=== PATIENT | female | born 1955 | race Hispanic/Latino ===

== ENCOUNTER 2019-02-10 14:02 | Outpatient (CLI) | payer MEDICARE, OTHER ==
--- NOTE | 2019-02-10 18:35 | ULT ---
SOFT TISSUE ULTRASOUND OF NECK: Date: 02/10/19 HISTORY: Palpable mass just beneath the jaw line at midline. TECHNIQUE: Multiplanar Ward scale and color Doppler images were obtained in a targeted ultrasound of the area of palpable abnormality in the neck. FINDINGS: There is a complex solid/cystic mass at the area of palpable abnormality measuring 1.7 x 1.0 x 1.7 cm in size. This may be associated with the strap musculature of the neck. IMPRESSION: Midline mixed solid/cystic mass. This is nonspecific. This could represent a thyroglossal duct cyst o r a sublingual thyroid gland. A CT of the neck with contrast is recommended for better characterizati on. POS: [facility]
== END 2019-02-10 14:03 | disposition home or self-care (01) ==
LOC: BICULT 14:02
PROVIDERS: ATTEND Family Medicine
DX: R22.1 Localized swelling, mass and lump, neck (principal)
CPT/HCPCS: 76536

== ENCOUNTER 2019-02-20 07:30 | Day surgery (SDC) | payer MEDICARE, OTHER ==
[2019-02-19 09:52] VITALS: BMI 29.9
[2019-02-20 08:16] LABS: Hemoglobin 13.3 g/dL (12.0-16.0); Platelet Count 160 thou/uL (130-400)
[2019-02-20 08:29] LABS: Anion Gap 14 mmol/L (10-20); BUN (Urea Nitrogen) 19 mg/dL (9.8-20.1); Calc. Creatinine Clearance 82 mL/min (70-130); Carbon Dioxide 25 mmol/L (23-31); Chloride 101 mmol/L (98-107); Estimated GFR-MDRD 77; Glucose 231 mg/dL (80-115); Potassium 4.2 mmol/L (3.5-5.1); Sodium 136 mmol/L (136-145)
[2019-02-20] MEDS ORDERED: Lidocaine 1% w/Epinephrine 1:100K 20 ML VIAL ONE (09:04)
[2019-02-20] MEDS ORDERED: Bacitracin Zinc Ointment 30 gm TUBE ONE (09:04)
[2019-02-20] MEDS ORDERED: Fentanyl 100 MCG/2 ML VIAL ONE ×3 (09:09→11:52)
[2019-02-20] MEDS ORDERED: Midazolam HCl 2 mg/2 ml Vial ONE ×2 (09:09→13:43)
[2019-02-20] MEDS ORDERED: Promethazine HCl 25 MG/ML VIAL ONE (11:44)
[2019-02-20] MEDS ORDERED: PHENYLEPHRINE-NS 100 MCG/ML 10 ML SYRINGE ONE (11:49)
[2019-02-20] MEDS ORDERED: Lidocaine 1% PF 5 ML VIAL ONE (11:49)
[2019-02-20] MEDS ORDERED: PROPOFOL 200 MG/20 ML VIAL ONE (11:49)
[2019-02-20] MEDS ORDERED: Dexamethasone 20 MG/5 ML VIAL ONE (11:49)
[2019-02-20] MEDS ORDERED: Ondansetron PF 4 MG/2 ML Vial ONE ×2 (11:49→12:34)
[2019-02-20] MEDS ORDERED: Dexamethasone 4 mg/ml Vial ONE (13:51)
--- NOTE | 2019-02-21 13:16 | OP ---
DATE OF PROCEDURE: 02/20/2019 PREOPERATIVE DIAGNOSIS: Thyroglossal duct cyst. POSTOPERATIVE DIAGNOSIS: Thyroglossal duct cyst. PROCEDURE PERFORMED: Direct laryngoscopy. Excision of thyroglossal duct cyst, it is called the Ashleigh procedure. PROCEDURE IN DETAIL: After consent was obtained, the patient identified and brought to the operating room, placed on the operating table in supine position. General endotracheal anesthesia was obtained. The patient underwent systematic oropharyngeal examination, hypopharyngeal examination with the laryngoscope. No abnormalities were identified and base of tongue appeared normal. We then prepped and draped the patient, positioned her for surgery. A natural skin crease below the chin was identified and marked for incision. 1% lidocaine 100,000 epinephrine was infiltrated into the area of intended incision. An incision was made through the skin, subcutaneous tissues, and down to where the cyst was encountered. We then dissected the cyst from the surrounding musculature, laryngeal musculature and strap muscles. We dissected the cyst tract to the midportion of the hyoid bone. The bone was delineated and midsection was removed. We then identified the cyst again, tracked on the contralateral side of the hyoid, midportion the hyoid bone and dissected that to the insertion to the tongue base. This was then suture ligated twice with silk suture. The pharyngeal muscles were reapproximated with absorbable suture. The skin was ultimately closed. The platysma was closed with absorbable Monocryl and the skin closed with 6-0 Prolene. Sterile dressing was applied. The patient was awakened, extubated and taken to recovery room in stable condition prior to discharge home. Job ID: [id number]
--- NOTE | 2019-02-25 10:16 | EKG ---
Test Reason : PREOP Blood Pressure : / mmHG Vent. Rate : 068 BPM Atrial Rate : 068 BPM P-R Int : 146 ms QRS Dur : 146 ms QT Int : 444 ms P-R-T Axes : 039 -71 -29 degrees QTc Int : 472 ms Normal sinus rhythm Right bundle branch block Left anterior fascicular block Bifascicular block Minimal voltage criteria for LVH, may be normal variant Abnormal ECG Confirmed by PATY MARTINI, JACQUELIN ([id number]) on 02/25/2019 10:16:44 AM Referred By: DMITRY Confirmed By:JACQUELIN NEWMAN MD
== END 2019-02-20 15:15 | disposition home or self-care (01) ==
LOC: SDC 07:30
PROVIDERS: ATTEND Specialist
PROC: 0WB60ZX Excision of Neck, Open Approach, Diagnostic (ICD-10-PCS; principal; 2019-02-20)
DX: Q89.2 Congenital malformations of other endocrine glands (principal); I10 Essential (primary) hypertension; E78.5 Hyperlipidemia, unspecified; E11.9 Type 2 diabetes mellitus without complications; E78.00 Pure hypercholesterolemia, unspecified; K21.9 Gastro-esophageal reflux disease without esophagitis; Z87.891 Personal history of nicotine dependence; Z79.84 Long term (current) use of oral hypoglycemic drugs; Z79.899 Other long term (current) drug therapy
CPT/HCPCS: 36415; 80048; 85014; 85018; 85049; 88305; 88311; 93005; 93010; J1100; J2001; J2250; J2405; J2550; J2704; J3010

== ENCOUNTER 2019-06-12 00:41 | Inpatient (IN) | payer MEDICARE, OTHER ==
[2019-06-12 01:11] LABS: #Eosinphils 0.3 thou/uL (0.0-0.7); #Lymphocytes 2.2 thou/uL (1.20-3.40); #Monocytes 0.5 thou/uL (0.11-0.59); #Neutrophils 4.9 thou/uL (1.40-6.50); %Basophils 0.3 % (0.0-1.0); %Eosinophils 3.2 % (0.0-10.0); %Lymphocytes 27.9 % (21.0-51.0); %Monocytes 6.4 % (0.0-10.0); %Neutrophils 62.3 % (42.0-75.0); Mean Corpuscular HGB CONC 35.3 g/dL (32.0-36.0); Mean Corpuscular Hemoglobin 31.6 pg (27.0-31.0); Mean Corpuscular Volume 89.5 fL (78.0-98.0); Mean Platelet Volume 9.3 fL (7.4-10.4); Platelet Count 203 thou/uL (130-400); RBC Distribution Width 11.6 % (11.5-14.5); Red Blood Cell (RBC) Count 4.75 mill/uL (4.20-5.40); White Blood Cell (WBC) Count 7.8 thou/uL (4.8-10.8)
[2019-06-12 01:33] LABS: ALT (SGPT) 42 U/L (8-55); AST (SGOT) 25 U/L (5-34); Albumin 4.7 g/dL (3.4-4.8); Alkaline Phosphatase 63 U/L (40-110); Anion Gap 17 mmol/L (10-20); BUN (Urea Nitrogen) 18 mg/dL (9.8-20.1); Bilirubin, Total 0.4 mg/dL (0.2-1.2); Calc. Creatinine Clearance 0 mL/min (70-130); Calcium 10.1 mg/dL (7.8-10.44); Carbon Dioxide 23 mmol/L (23-31); Chloride 99 mmol/L (98-107); Estimated GFR-MDRD 71; Globulin 2.6 g/dL (2.4-3.5); Glucose 324 mg/dL (80-115); Potassium 4.1 mmol/L (3.5-5.1); Protein, Total 7.3 g/dL (6.0-8.3); Sodium 135 mmol/L (136-145)
[2019-06-12] MEDS ORDERED: Calcium Chloride 1 GM/10 ML Abboject SYRINGE ONE (01:43)
[2019-06-12] MEDS ORDERED: Fentanyl 100 MCG/2 ML VIAL ONE (02:13)
[2019-06-12 03:26] VITALS: BMI 27.7
--- NOTE | 2019-06-12 03:47 | CON ---
DATE OF CONSULTATION: TIME: Critical Care time 1 hour. HISTORY OF PRESENT ILLNESS: The patient is a 64-year-old woman who presents after losing consciousness. The patient has no previous cardiac history. The patient was in her usual state of health when she was at [facility] and suddenly lost consciousness. This happened on 2 occasions. She was brought to the emergency room for further evaluation. The patient denies having any history of chest pain or dyspnea. She has never previously lost consciousness. PAST MEDICAL HISTORY: 1. Diabetes mellitus. 2. Hypertension. 3. Hypercholesterolemia. PAST SURGICAL HISTORY: Foot surgery, cholecystectomy,and tubal ligation. MEDICATIONS: 1. Lipitor 10 daily. 2. HCTZ 12.5 daily. 3. Protonix 40 b.i.d. 4. Verapamil 240 daily. 5. Glyburide 2.5 daily. 6. Metformin 2000 daily. ALLERGIES: NO KNOWN DRUG ALLERGIES. PHYSICAL EXAMINATION: GENERAL: Obese woman, in mild distress with a blood pressure of 170/50, heart rate is 30 bpm. NECK: No jugular venous distention. LUNGS: Clear to auscultation. HEART: Regular rate and rhythm. Normal S1 and S2 with a 2/6 systolic murmur. ABDOMEN: Distended. EXTREMITIES: Showed no edema. VASCULAR: Radial pulses 2+. LABORATORY DATA: Sodium 135, potassium 4.1, chloride 99, bicarbonate 23, BUN 18 , creatinine 0.81, glucose 324. Troponin less than 0.01. BNP less than 10. IMAGING: EKG revealed third-degree heart block with a slow ventricular escape rhythm. IMPRESSION: 1. Third-degree heart block. 2. Diabetes mellitus. 3. Hypertension. 4. Dyslipidemia. This patient developed third-degree heart block. She had lost consciousness. The patient is maintaining her blood pressure. The patient will need to undergo placement of an electronic pacemaker. She will be observed in the CCU. Transcutaneous pacemaker shows appropriate capture. We will follow this patient with you through her hospitalization. Job ID: [id number] [facility]
[2019-06-12] MEDS ORDERED: Acetaminophen 325 MG TAB PO PRN (04:16)
[2019-06-12] MEDS ORDERED: HumaLOG 300 UNITS/3 ML VIAL SC PRN (04:19)
[2019-06-12] MEDS ORDERED: Dextrose 50% Abboject 50 ML SYRINGE SLOW IVP PRN ×2 (04:19→14:05)
[2019-06-12] MEDS ORDERED: Dextrose 5% in Water 1,000 ML IV PRN ×2 (04:19→14:05)
[2019-06-12] MEDS ORDERED: Lidocaine 1% (PF) 30 ML VIAL ONE ×2 (04:24→08:53)
[2019-06-12] MEDS ORDERED: Ondansetron ODT 4 MG TAB PO PRN (04:54)
[2019-06-12 05:25] LABS: Troponin I 0.022 ng/mL (< 0.028)
[2019-06-12] MEDS: Ondansetron PF 4 MG/2 ML Vial IVP PRN ×3 (05:49→17:00)
--- NOTE | 2019-06-12 05:58 | HP ---
CHIEF COMPLAINT: Syncope. HISTORY OF PRESENT ILLNESS: This patient is a 64-year-old female who presented to the emergency department. Patient was at [facility] today in her usual state of health and then she developed a syncopal episode. Her daughter was able to essentially catch her and keep her from falling to the ground significantly. Patient then had a second episode, presented to the emergency department. There , she was found to be in complete heart block. She had consultation with Dr. Stone. The plan was to give her some calcium in light of her calcium channel papo that she takes for hypertension. She had a cutaneous pacemaker placed and appeared to be capturing. However, the patient remained relatively asymptomatic and was maintaining a blood pressure in the emergency department. Therefore, the transcutaneous pacemaker is currently turned off and available in case the patient becomes significantly more symptomatic. Currently, the patient is feeling generally hot and slightly sweaty, but otherwise normal. She has no significant lightheadedness. No chest pain. She does report that she did have one episode of pain across her upper abdominal area about 4 o'clock this afternoon that spontaneously resolved. She denies any shortness of breath. REVIEW OF SYSTEMS: All other systems reviewed. All pertinent positives and negatives noted in history of present illness. PAST MEDICAL HISTORY: Notable for diabetes, hypertension, and hyperlipidemia. SURGERY: She has had cholecystectomy, foot surgery, hand surgery, thyroglossal duct cyst removal, and tubal ligation. FAMILY HISTORY: Mother had heart disease and diabetes. SOCIAL HISTORY: She is a nonsmoker, nondrinker, and nondrug user. She is full code and her daughter would be her surrogate decision maker should that become necessary. CURRENT MEDICATIONS: 1. Lipitor 10 mg daily. 2. Hydrochlorothiazide 12.5 mg daily. 3. Protonix 40 mg b.i.d. 4. Verapamil 240 mg daily. 5. Glyburide 2.5 mg daily. 6. Metformin 2000 mg daily. ALLERGIES: NONE. PHYSICAL EXAMINATION: VITAL SIGNS: Currently pulse is in the 20s. Blood pressure in the ER was actually running a bit high. I am unable to get a blood pressure on the monitor in the ICU presently. GENERAL APPEARANCE: Again, patient is fully awake, alert, pleasant, and cooperative, two of her daughters are at her bedside. She is very minimally diaphoretic. HEENT: PERRL. No acute lesions. NECK: Supple and symmetric without lymphadenopathy, JVD, or carotid bruits. HEART: Rhythm is extremely bradycardic. There are no murmurs. LUNGS: Clear to auscultation bilaterally. Good chest wall expansion and air exchange. ABDOMEN: Soft, nontender, and nondistended. Positive bowel sounds. No masses. No organomegaly. EXTREMITIES: No cyanosis, clubbing, or edema. LABORATORY DATA: White count 7.8, hemoglobin 15.0, and platelets 203. Sodium 135, potassium 4.1, chloride 99, CO2 is 23, BUN 18, creatinine 0.81, glucose 324, calcium 10.1, AST is 25, ALT 42, and alk phos 63. Troponin less than 0.01. BNP less than 10. Albumin 4.7. Chest x-ray appears to be normal. EKG confirms third-degree heart block with bradycardia. IMPRESSION AND PLAN: 1. Third-degree heart block. Patient has maintained blood pressure. She is fully awake and has normal cognition at the moment. Therefore, the transcutaneous pacemaker has been turned off for the moment and is available as a safety net should it be necessary. She received calcium in the ER in light of her calcium channel papo. Those medicines are being held and she has been made n.p.o. after midnight for anticipation of a pacemaker placement in the next few hours. We will be asking Anesthesia to help place an arterial line so that we can in fact confirm the blood pressures. 2. Diabetes mellitus. Because she is n.p.o., we will give her sliding scale and Accu-Cheks. 3. Hypertension. Again, her pressure was actually high even with this bradycardia, but holding her calcium channel blockers. 4. Hyperlipidemia. We will continue with the statin. Job ID: [id number] [facility]
[2019-06-12] MEDS: Morphine 2 MG/ML SYRINGE SLOW IVP PRN ×2 (06:06→11:23)
[2019-06-12 08:05] LABS: Troponin I 0.017 ng/mL (< 0.028)
[2019-06-12] MEDS ORDERED: Gentamicin 80 MG/2 ML VIAL ONE (08:07)
[2019-06-12] MEDS ORDERED: CEFAZOLIN 1 GM VIAL ONE (08:07)
--- NOTE | 2019-06-12 08:15 | RAD ---
SINGLE VIEW OF THE CHEST: COMPARISON: None. HISTORY: Syncope. FINDINGS: Single view of the chest shows a normal sized cardiomediastinal silhouette. There is no evidence of c onsolidation, mass, or pleural effusion. The bones are unremarkable. IMPRESSION: No evidence of acute cardiopulmonary disease. POS: [facility]
[2019-06-12] MEDS ORDERED: Midazolam HCl 2 mg/2 ml Vial ONE (08:53)
[2019-06-12] MEDS ORDERED: Iopamidol 370 76% 50 ML VIAL FS ONE (11:12)
--- NOTE | 2019-06-12 11:24 | CON ---
DATE OF CONSULTATION: 06/12/2019 HISTORY OF PRESENT ILLNESS: Lilly Herr, who yesterday was in [facility], had several episodes of syncope, brought to the ER, where she was found to be in complete heart block. This morning, she underwent a cardiac cath and a pacemaker insertion. She is now back in the ICU. She is feeling better. Remote history of tobacco abuse without any prior history of TB, pneumonia, or bronchial asthma. In fact, most days, she is extremely healthy, walks a fair distance without getting markedly short of breath. PAST MEDICAL HISTORY: 1. Diabetes. 2. Hypertension. 3. High cholesterol. 4. Reflux. Apparently, she has cough. PAST SURGICAL HISTORY: 1. foot surgery. 2. Gallbladder surgery. 3. Hysterectomy. 4. Thyroglossal cyst removed. HOME MEDICINES: 1. Metformin 1000 twice a day. 2. Glyburide 2.5 once a day. 3. Verapamil 240 once a day. 4. Protonix 40 twice a day. 5. Hydrochlorothiazide 12.5 a day. 6. Lipitor 10. REVIEW OF SYSTEMS: Otherwise, negative. PHYSICAL EXAMINATION: VITAL SIGNS: Pulse 70, blood pressure 140/80, respirations 18, sats are 98%. CHEST: No wheezing or crackles. CARDIAC: Normal S1 and S2. No gallops. ABDOMEN: No masses. LABORATORY DATA: White count 7000, H and H unremarkable. Glucose 280. IMPRESSION AND PLAN: 1. Complete heart block. 2. Hypertension. 3. Diabetes. 4. Former smoker. Pulmonary calderon, nothing additional to offer at this stage. She remained in the ICU until disposition as per Cardiology. Pulmonary will follow while in the ICU. Consultation note, 70 minutes, 50% direct patient care. Job ID: [id number]
--- NOTE | 2019-06-12 11:55 | RAD ---
Portable frontal chest radiograph: 06/12/2019 At 11:23 AM COMPARISON: 06/12/2019 at 1:11 AM HISTORY: Evaluate chest following pacemaker placement FINDINGS: New dual lead left-sided transvenous pacing device. Leads overlie the region of the right a trium and the right ventricle. No pneumothorax, pleural fluid, focal consolidation, or alveolar edema. IMPRESSION: New dual lead transvenous pacing device. No pneumothorax.
--- NOTE | 2019-06-12 14:07 | PDOC.HOSPP ---
- Subjective Encounter Date: 06/12/19 Encounter Time: 10:50 Subjective: s/p pacer placement, restart CCB and diabetic diet. family at bedside. - Objective Vital Signs & Weight: Vital Signs (12 hours) Temp Pulse Resp BP Pulse Ox 06/12/19 13:18 97.5 F L 71 12 120/58 L 97 06/12/19 11:00 97.6 F 06/12/19 07:41 98 06/12/19 07:00 98.0 F 06/12/19 02:44 97 Weight Weight 146 lb 13.246 oz Most Recent Monitor Data Heart Rate from ECG 78 NIBP 135/76 NIBP BP-Mean 95 Respiration from ECG 10 SpO2 93 I&O: 06/11/19 06/12/19 06/13/19 06:59 06:59 06:59 Intake Total 100 Output Total 100 795 Balance -100 -695 Result Diagrams: 06/12/19 01:01 06/12/19 00:59 Additional Labs: Accuchecks 06/12/19 06/12/19 06/12/19 12:48 07:12 04:54 POC Glucose 214 H 280 H 336 H Hospitalist ROS - Medication Medications: Active Medications Generic Name Dose Route Start Last Admin Trade Name Freq PRN Reason Stop Dose Admin Acetaminophen 650 mg 06/12/19 04:16 06/12/19 11:23 Tylenol PO 650 mg Q4H PRN Administration Headache/Fever/Mild Pain (1-3) Insulin Human Lispro 0 units 06/12/19 04:19 06/12/19 05:56 Humalog SC 5 unit .MILD SLIDING SCALE PRN Administration Mild Correctional Scale Morphine Sulfate 2 mg 06/12/19 05:44 06/12/19 11:23 Morphine SLOW IVP 2 mg Q4H PRN Administration Moderate to Severe Pain (6-10) Ondansetron HCl 4 mg 06/12/19 04:54 06/12/19 11:23 Zofran IVP 4 mg Q6H PRN Administration Nausea/Vomiting Sodium Chloride 10 ml 06/12/19 09:00 06/12/19 11:28 Flush - Normal Saline IVF 10 ml Q12HR GILLES Administration - Exam General Appearance: NAD, awake alert Eye: PERRL ENT: normocephalic atraumatic Neck: supple, symmetric Heart: RRR Respiratory: CTAB Gastrointestinal: soft, normal bowel sounds, no palpable masses Neurological: cranial nerve grossly intact, no focal deficits Hosp A/P - Plan 3rd AVB - s/p pacer placed on -restart her cardiac meds DM2 --BG quite high - on glyburide & metformin -initiate SSI GERD -on PPI prob dc after EP clearance.
[2019-06-12] MEDS: oxyCODONE/Acetaminophen 5 mg/325 mg Tablet PO PRN (16:20)
[2019-06-12] MEDS: Verapamil 80 MG TAB PO SCH ×2 (16:53→21:22)
[2019-06-12] MEDS: metFORMIN 500 MG TAB PO SCH (16:54)
[2019-06-12] MEDS: HumaLOG 300 UNITS/3 ML VIAL SC PRN (18:50)
[2019-06-12] MEDS ORDERED: Atorvastatin Calcium 10 MG TAB PO SCH (21:00)
[2019-06-13] MEDS: oxyCODONE/Acetaminophen 5 mg/325 mg Tablet PO PRN (00:41)
[2019-06-13] MEDS ORDERED: CEFAZOLIN 1 GM VIAL ONE (07:25)
[2019-06-13] MEDS ORDERED: Gentamicin 80 MG/2 ML VIAL ONE (07:25)
[2019-06-13] MEDS ORDERED: glyBURIDE 2.5 MG TAB PO SCH (08:00)
[2019-06-13] MEDS ORDERED: Ondansetron PF 4 MG/2 ML Vial ONE (08:13)
[2019-06-13] MEDS ORDERED: Fentanyl 100 MCG/2 ML VIAL ONE (08:18)
[2019-06-13] MEDS ORDERED: Midazolam HCl 2 mg/2 ml Vial ONE (08:18)
[2019-06-13] MEDS ORDERED: Lidocaine 1% (PF) 30 ML VIAL ONE (08:33)
[2019-06-13] MEDS ORDERED: Hydrochlorothiazide 25 MG TAB PO SCH (09:00)
[2019-06-13] MEDS: metFORMIN 500 MG TAB PO SCH ×2 (09:42→17:19)
[2019-06-13] MEDS: Verapamil 80 MG TAB PO SCH ×2 (09:42→15:18)
--- NOTE | 2019-06-13 10:00 | RAD ---
Chest AP view INDICATION: Post cardiac device placement COMPARISON: June 12, 2019 11:23 AM FINDINGS: Lungs: The lungs are clear Cardiac silhouette: Heart size is normal. The dual-lead pacemaker is again seen overlying the left c hest wall. The lead projecting in the region of the right atrium appears altered in its projection consistent with revision. The generator pack appears unchanged. Pulmonary vasculature: Normal Pleural spaces: No pleural effusion or pneumothorax is demonstrated. Upper abdomen: No abnormality Osseous Structures: No acute osseous abnormality. Additional findings: None. IMPRESSION: No acute cardiopulmonary abnormality. No pneumothorax.
--- NOTE | 2019-06-13 10:13 | PRG ---
DATE OF SERVICE: 06/13/2019 SUBJECTIVE: This morning, she is better, less short of breath. She has had a pacemaker inserted. OBJECTIVE: VITAL SIGNS: Temperature 97, pulse 74, saturations are 98% on room air, blood pressure 137/65. CHEST: No wheezing, crackles. CARDIAC: Normal S1, S2. ABDOMEN: No mass. ASSESSMENT: Complete heart block requiring pacemaker. PLAN: Pulmonary, nothing to offer at this stage. We will follow at a distance. Please call as needed. Job ID: [id number]
[2019-06-13] MEDS ORDERED: Promethazine HCl 25 MG/ML VIAL SLOW IVP SCH (11:30)
[2019-06-13] MEDS: HumaLOG 300 UNITS/3 ML VIAL SC PRN (11:33)
[2019-06-13] MEDS ORDERED: HumaLOG 300 UNITS/3 ML VIAL SC PRN (15:04)
[2019-06-13 15:20] VITALS: BP 122/66; TEMP 98
--- NOTE | 2019-06-14 01:17 | DIS ---
DATE OF ADMISSION: 06/12/2019 DATE OF DISCHARGE: 06/13/2019 PRIMARY CARE PROVIDER: Kate Srivastava MD DISCHARGE DIAGNOSES: 1. Third-degree heart block. 2. Status post permanent pacemaker placement during this hospitalization. 3. Status post lead revision. 4. Syncope. CONDITION OF PATIENT ON THE DAY OF DISCHARGE: Stable. I assessed Ms. Herr on the day of discharge. She denies any chest pain or shortness of breath. Vital signs are stable. S1 and S2 are heard, regular. Lungs are clear to auscultation bilaterally. DISCHARGE MEDICATIONS: Verapamil extended release has been discontinued. She has been started on Calan 80 mg 3 times a day. Otherwise, no change was made to her pre-admission home medications as dictated by Dr. Mahan in his history and physical note dated June 12, 2019. CONSULTATIONS DURING THIS HOSPITALIZATION: Cardiology, Dr. Stone and Pulmonology, Dr. Yeager. HOSPITAL COURSE: Ms. Herr is a pleasant 64-year-old lady, who was admitted to [facility] on June 12, 2019, for syncopal episode. She was found to be in third-degree AV block. She was admitted to the Critical Care Unit. She was seen by Cardiology Service. She underwent pacemaker insertion with MRI compatible pacemaker, [employer] Cammie on June 12, 2019. She went for lead revision on June 13, 2019. A lead was repositioned without difficulty. She has been cleared for discharge by Cardiology Service. She was advised to follow up with them in 2 weeks time. POST ACUTE CARE FOLLOWUP: With primary care provider in [address] Burrell in 14 days. DIET: Heart healthy and diabetic. ACTIVITY: No restrictions. Many thanks for allowing me to participate in your patient's care. Please feel free to contact me with any questions or concerns. DISCHARGE DESTINATION: Home. TIME SPENT: Total amount of time spent coordinating this discharge: 32 minutes. Job ID: [id number]
--- NOTE | 2019-06-14 12:12 | EKG ---
Test Reason : Blood Pressure : / mmHG Vent. Rate : 043 BPM Atrial Rate : 038 BPM P-R Int : 000 ms QRS Dur : 122 ms QT Int : 620 ms P-R-T Axes : 061 107 -81 degrees QTc Int : 523 ms 3rd Degree heart block Rightward axis RSR' or QR pattern in V1 suggests right ventricular conduction delay Abnormal ECG Confirmed by BEATRIS TRACEY ([id number]), acquisitions editor JANUSZ HUYNH ([id number]) on 06/14/2019 12:11:51 PM Referred By: Confirmed By:BEATRIS TRACEY
--- NOTE | 2019-06-14 15:39 | CCL ---
DATE OF SERVICE: 06/12/19 INDICATIONS: This is a 64-year-old female with complete heart block with heart rates in the 30s with syncope. She was advised to undergo dual chamber pacemaker insertion. She was taken to the cardiac research laboratory manager where she was prepped and draped in the sterile fashion and und erwent the procedure without difficulties of complications. She was implanted with a dual chamber pac emaker from [employer], an Cammie XT with two screw-in leads, one in the atrium and one in the ventricl e. Pacemaker was set with the upper rate at 130 and the lower rate was set at 60. There were no signi ficant complications. It was somewhat difficulty encountered as the patient had difficulty engaging t he left subclavian vein. We did use a venogram to visualize the vein. She was given 1 mg of IV versed for conscious sedation. Throughout the procedure she was monitored by an independent observer presen t for heart rate, blood pressure and O2 saturations. Remained stable throughout the procedure. Again, we had some difficulty in manipulating the leads after finding the vein but eventually were found to have good sensing and good thresholds and otherwise no complications or difficulties encountered.
--- NOTE | 2019-06-14 16:25 | CCL ---
Date of procedure: 06/13/19 INDICATION: 64-year-old female who underwent dual chamber pacemaker insertion yesterday and on the postoperative film was noted to have atrial lead dislodgement. She was advised to undergo revision of the atrial le ad this morning. She was taken to the Cardiac Log Chipper Operator where she was prepped and draped in the sterile fashion and usi ng sterile technique, the pacemaker pocket was reopened. Was irrigated using copious amounts of antib iotic solution and then the atrial lead was detached from the pacemaker generator and using a pacema ker wire, this was then repositioned into the right atrium again. Then was found to have normal sens ing and normal thresholds and was reattached to the pacemaker generator. Then the lead was sewn into place. A ventricular lead was also placed externally to the device and was found to have normal sensi ng and normal thresholds. The pacemaker with the leads was then repositioned into the pacemaker pock et and the pocket was again closed using three layers of suture. There were no difficulties or compli cations encountered. She was given IV Fentanyl, versed and Zofran for the procedure. She tolerated th e procedure well. Total sedation time was approximately 43 minutes. No difficulties or complications encountered. Pacemaker was again set at the upper rate of 130 and the lower rate was set at 60.
== END 2019-06-13 19:14 | disposition home or self-care (01) | DRG 243 ==
LOC: ERS 00:41 → CCU 03:00 → 2NO 13:24
PROVIDERS: ADMIT Internal Medicine; ATTEND Internal Medicine
PROC: 0JH606Z Insertion of Pacemaker, Dual Chamber into Chest Subcutaneous Tissue and Fascia, Open Approach (ICD-10-PCS; principal; 2019-06-12)
PROC: 02HK3JZ Insertion of Pacemaker Lead into Right Ventricle, Percutaneous Approach (ICD-10-PCS; 2019-06-12)
PROC: 02H63JZ Insertion of Pacemaker Lead into Right Atrium, Percutaneous Approach (ICD-10-PCS; 2019-06-12)
PROC: 02WA0MZ Revision of Cardiac Lead in Heart, Open Approach (ICD-10-PCS; 2019-06-13)
DX: I44.2 Atrioventricular block, complete (principal); T82.120A Displacement of cardiac electrode, initial encounter; E11.9 Type 2 diabetes mellitus without complications; I10 Essential (primary) hypertension; E78.00 Pure hypercholesterolemia, unspecified; E78.5 Hyperlipidemia, unspecified; K21.9 Gastro-esophageal reflux disease without esophagitis; Y83.1 Surgical operation with implant of artificial internal device as the cause of abnormal reaction of the patient, or of later complication, without mention of misadventure at the time of the procedure; Z79.899 Other long term (current) drug therapy; Z79.84 Long term (current) use of oral hypoglycemic drugs; Z90.49 Acquired absence of other specified parts of digestive tract; Z87.891 Personal history of nicotine dependence
CPT/HCPCS: 33208; 33215; 36005; 36415; 36416; 51702; 71045; 75820; 80053; 80061; 82043; 83036; 83735; 83880; 84443; 84484; 85025; 92953; 93005; 93798; 96374; 99152; 99153; 99292; C1785; C1898; J0690; J1580; J2001; J2250; J2270; J2405; J2550; J3010; Q0162; Q9967

== ENCOUNTER 2020-10-09 17:28 | Emergency (ER) | payer MEDICARE ==
[2020-10-09 19:17] LABS: #Lymphocytes 1.2 thou/uL (1.20-3.40); #Monocytes 0.6 thou/uL (0.11-0.59); #Neutrophils 3.5 thou/uL (1.40-6.50); %Basophils 0.2 % (0.0-1.0); %Eosinophils 0.9 % (0.0-10.0); %Lymphocytes 23.1 % (21.0-51.0); %Monocytes 10.5 % (0.0-10.0); %Neutrophils 65.4 % (42.0-75.0); Hemoglobin 13.2 g/dL (12.0-16.0); Mean Corpuscular HGB CONC 34.8 g/dL (32.0-36.0); Mean Corpuscular Hemoglobin 31.6 pg (27.0-31.0); Mean Corpuscular Volume 90.8 fL (78.0-98.0); Mean Platelet Volume 8.1 fL (7.4-10.4); Platelet Count 143 thou/uL (130-400); RBC Distribution Width 11.7 % (11.5-14.5); Red Blood Cell (RBC) Count 4.18 mill/uL (4.20-5.40); White Blood Cell (WBC) Count 5.3 thou/uL (4.8-10.8)
[2020-10-09 19:38] LABS: ALT (SGPT) 48 U/L (8-55); AST (SGOT) 37 U/L (5-34); Albumin 4.3 g/dL (3.4-4.8); Alkaline Phosphatase 66 U/L (40-110); Anion Gap 18 mmol/L (10-20); BUN (Urea Nitrogen) 13 mg/dL (9.8-20.1); Bilirubin, Total 0.4 mg/dL (0.2-1.2); Calc. Creatinine Clearance 0 mL/min (70-130); Calcium 9.2 mg/dL (7.8-10.44); Carbon Dioxide 23 mmol/L (23-31); Chloride 97 mmol/L (98-107); Globulin 2.9 g/dL (2.4-3.5); Glucose 176 mg/dL (80-115); Potassium 3.9 mmol/L (3.5-5.1); Protein, Total 7.2 g/dL (5.8-8.1); Sodium 134 mmol/L (136-145)
== END 2020-10-09 21:16 | disposition home or self-care (01) ==
LOC: ERS 17:28
DX: J06.9 Acute upper respiratory infection, unspecified (principal); R53.1 Weakness; I10 Essential (primary) hypertension; E78.5 Hyperlipidemia, unspecified; E78.00 Pure hypercholesterolemia, unspecified; Z87.891 Personal history of nicotine dependence; Z79.82 Long term (current) use of aspirin; Z79.84 Long term (current) use of oral hypoglycemic drugs; Z79.899 Other long term (current) drug therapy
CPT/HCPCS: 36415; 71045; 80053; 85025; 93005

== ENCOUNTER 2021-02-18 10:43 | Outpatient (CLI) | payer MEDICARE | END 2021-02-18 10:44 | disposition home or self-care (01) | LOC: BICMAMMO 10:43 | PROVIDERS: ATTEND Family Medicine | DX: Z12.31 Encounter for screening mammogram for malignant neoplasm of breast (principal) | CPT/HCPCS: 77063; 77067 ==

== ENCOUNTER 2022-05-22 13:00 | Outpatient (CLI) | payer MEDICARE | END 2022-05-22 13:01 | disposition home or self-care (01) | LOC: BICMAMMO 13:00 | PROVIDERS: ATTEND Family Medicine | DX: Z12.31 Encounter for screening mammogram for malignant neoplasm of breast (principal) | CPT/HCPCS: 77063; 77067 ==

== ENCOUNTER 2024-05-25 20:19 | Emergency (ER) | payer MEDICARE, OTHER | END 2024-05-25 23:33 | disposition left against medical advice (07) | LOC: ERS 20:19 | DX: Z53.21 Procedure and treatment not carried out due to patient leaving prior to being seen by health care provider (principal) ==